=== PATIENT | female | born 1935 | race Caucasian/White ===

== ENCOUNTER 2017-01-03 08:00 | Inpatient (IN) | payer OTHER ==
[2016-12-24 12:16] VITALS: BMI 30.9
--- NOTE | 2016-12-31 10:35 | HP ---
Satellite [facility] - Chief Complaint Chief Complaint: right hip pain - Past Medical History Allergies/Adverse Reactions: Allergies Allergy/AdvReac Type Severity Reaction Status Date / Time No Known Allergies Allergy Verified 12/24/16 11:49 - Current Medications Current Medications: Home Medications Medication Instructions Recorded Amlodipine Besylate [Norvasc -] 10 mg PO DAILY 12/24/16 Atorvastatin Ca [Lipitor] 80 mg PO DAILY 12/24/16 Digoxin 125 mcg PO DAILY 12/24/16 Glimepiride [Amaryl] 0.5 mg PO DAILY 12/24/16 Metformin HCl [Metformin HCl ER] 1,000 mg PO BID 12/24/16 Prednisone [Deltasone -] 20 mg PO UTDICT 12/24/16 Valsartan/Hydrochlorothiazide 1 each PO HS 12/24/16 [Valsartan-Hctz 320-25 mg Tab] Warfarin Sodium [Coumadin] 9 mg PO ASDIR 12/24/16 Warfarin Sodium [Coumadin] 10 mg PO ASDIR 12/24/16 Satellite Physical Exam - Physical Examination General Appearance: Well Nourished, Well Developed, Alert & Oriented x3 ENT: Clear Lung: Normal air movement Heart: Regular rate & rhythm Extremities: Other (right hip- + ttp, decr rom, nvi xrays show severe hip djd) Neurological: Intact, Alert, Oriented Satellite Impression/Plan - Impression/Plan Impression: right hip djd Operative Procedure: right bijan thr Date to be Performed: 01/04/17
[2017-01-04] MEDS ORDERED: CEFAZOLIN 2 GM in DEXTROSE 5%-WATER - 50 ML IVPB ONE (06:03)
[2017-01-04] MEDS ORDERED: GABAPENTIN 300 MG CAPSULE (FP) PO ONE (06:03)
[2017-01-04] MEDS ORDERED: CELECOXIB 200 MG CAPSULE PO ONE (06:03)
[2017-01-04] MEDS ORDERED: TRANEXAMIC ACID 1000 MG/10 ML VIAL IVPUSH ONE (06:03)
[2017-01-04] MEDS ORDERED: ceFAZolin SODIUM 1 GM VIAL ONE ×2 (07:05→09:52)
[2017-01-04] MEDS ORDERED: VANCOMYCIN 1,000 MG VIAL (RESTRICTED TO ID ONLY) ONE (07:05)
[2017-01-04] MEDS ORDERED: MIDAZOLAM HCL 2 MG/2 ML SINGLE DOSE VIAL ONE ×2 (07:37→08:56)
[2017-01-04] MEDS ORDERED: DEXAMETHASONE SOD PHOSPHATE/PF 10 MG/ML SDV ONE (07:37)
[2017-01-04 07:48] LABS: INR 0.99 (0.82-1.09); PROTHROMBIN TIME (PATIENT) 10.9 SEC (9.98-11.88)
[2017-01-04] MEDS ORDERED: BUPIVACAINE HCL/PF 0.5% (5MG/ML) 10 ML VIAL ONE (08:06)
[2017-01-04] MEDS ORDERED: PROPOFOL 20 ML ONE ×3 (08:06)
[2017-01-04] MEDS ORDERED: PHENYLEPHRINE HCL 10 MG/1 ML SINGLE DOSE VIAL ONE (09:03)
[2017-01-04] MEDS ORDERED: VANCOMYCIN 1,000 MG VIAL (RESTRICTED TO ID ONLY) IVPB ONE (09:30)
[2017-01-04] MEDS ORDERED: LACTATED RINGERS SOLUTION 1,000 ML IV SCH (10:00)
[2017-01-04] MEDS ORDERED: MULTIVITAMINS (DAILY MVI) TABLET (FP) PO SCH (10:00)
[2017-01-04] MEDS ORDERED: MAGNESIUM HYDROX 2400MG/30ML ORAL SUSPENSION 30 ML CUP PO PRN (10:00)
[2017-01-04] MEDS ORDERED: ONDANSETRON 4 MG/2 ML VIAL IVPB PRN (10:00)
[2017-01-04] MEDS ORDERED: MAG HYDROX/AL HYDROX/SIMETH 30 ML UNIT-DOSE CUP PO PRN (10:00)
--- NOTE | 2017-01-04 10:05 | OP ---
Operative Note - Note: Operative Date: 01/04/17 (mik) Pre-Operative Diagnosis: right hip djd Operation: right bijan thr Post-Operative Diagnosis: Same as Pre-op Surgeon: Stan Tyler Auto Parts Clerk: Luis Tello Anesthesiologist/CLINICAL PHARMACOLOGIST: Jen Delacruz Anesthesia: Spinal, Local Specimens Removed: femoral head Estimated Blood Loss (mls): 100 Operative Report Dictated: Yes
[2017-01-04] MEDS ORDERED: PROMETHAZINE HCL 25 MG/1 ML VIAL IVPUSH PRN (10:07)
[2017-01-04] MEDS ORDERED: oxyCODONE HCL 5 MG TABLET PO PRN (10:09)
[2017-01-04] MEDS ORDERED: ACETAMINOPHEN 1000 MG/100 ML VIAL (NON FORMULARY) IVPB ONE (10:09)
[2017-01-04] MEDS ORDERED: ONDANSETRON 4 MG/2 ML VIAL IVPUSH ONE (10:24)
[2017-01-04] MEDS ORDERED: METOCLOPRAMIDE HCL INJECTION 10 MG/2 ML VIAL IVPUSH ONE (10:58)
[2017-01-04] MEDS ORDERED: METOCLOPRAMIDE HCL INJECTION 10 MG/2 ML VIAL ONE (11:00)
[2017-01-04] MEDS ORDERED: DEXAMETHASONE SOD PHOSPHATE 4 MG/1 ML VIAL ONE (11:00)
--- NOTE | 2017-01-04 11:46 | SPEC ---
DATE OF OPERATION: 01/04/2017 PROCEDURE: Right total hip replacement with robotic-assisted navigation (MAKOplasty) PREOPERATIVE DIAGNOSIS: Degenerative joint disease right hip POSTOPERATIVE DIAGNOSIS: Degenerative joint disease right hip SURGICAL ATTENDING: Stan Tyler MD NOXIOUS WEEDS AND PEST INSPECTOR: EMILIANO Marley ANESTHESIA: Spinal and regional CLOSURE: No. 5, Accolade-2 Press Fit stem with a standard MDM head with a 50 titanium Press Fit acetabulum, No. 1 Vicryl for fascia and capsule, 0 and 2 of subcutaneous 0-0 Monocryl subcuticular with skin glue for skin. ESTIMATED BLOOD LOSS: Less than 100 mL COMPLICATION: None: CONDITION: To recovery room in stable condition DESCRIPTION OF OPERATIVE PROCEDURE: The patient was taken to the operating room. Spinal anesthesia as well as sciatic block was administered by the anesthesiologist. The IV Kefzol and TXA were administered prophylactically prior to the case. The patient was placed in the lateral decubitus position with all prominences well-padded. An EKG pad was secured to the inferior pole of the patella for limb length calculations intraoperatively. The right hip area was prepped and draped in the usual sterile fashion. A 12.0-15.0 cm curved longitudinal incision over the posterolateral aspect of the greater trochanter was made. Hemostasis was achieved with Bovie cautery. Sharp dissection was carried down to the level of the fascia. The fascia was opened the entire length of the incision, spreading the gluteus norberto fibers in the direction of their origin. A Charnley retractor was placed in this layer, and care was taken to be far away from the sciatic nerve. The short external rotators were detached off the insertion of the greater trochanter and peeled off the capsule. A posterior capsulectomy was then performed. A checkpoint was malleted into the greater trochanter. Three small stab incisions were done on the iliac crest. Through these stab incisions, threaded guide pins were drilled into the iliac crest. These pins were fastened to the Navigation array. The check point on the greater trochanter, and the EKG pad on the inferior pole of the patella were used to measure preoperative limb length and offset. The hip was then dislocated. The hip was osteotomized at the appropriate level as directed by the preoperative template. Anterior and posterior retractors were placed around the acetabulum. Circumferential labrum was excised. A checkpoint was malleted into the acetabulum superiorly. The acetabulum was then registered with the Navigation device with multiple sites within the acetabulum and around the rim of the acetabulum. I t was then confirmed popping the blue bubbles, confirming ideal position and confirmation of adequate registration with the Navigation device. Using a 48 reamer, which was decided preoperatively on the preoperative template, the robotic arm was brought into the field and was used to ream the acetabulum down to the appropriate depth with the appropriate orientation and inversion applied. After reaming, a good hemispherical bleeding surface was encountered in the acetabulum. A SIDNEY shell of the appropriate size was then malleted into place achieving excellent fit. Confirmation of the appropriate orientation and inversion was confirmed using the probe, and assuring that the acetabular cup was placed in the ideal position as templated preoperatively. A real liner was then clipped into place with a 10 degree lip in the posterior-superior quadrant. Anterior and posterior osteophytes were removed using osteotome. Next, our attention was directed to the femur. The proximal femur was opened with a box chisel, rat-tail, anchovy and serial reamers. This was done until the appropriate reamer achieved good fit and fill of the proximal femur. A trial reduction with the appropriate neck and head, as again measured from our preoperative template, was performed. Limb lengths were confirmed both visually and using the Navigation device, again measuring the inferior pole of the patella and the checkpoint of the greater trochanter. This confirmed ideal position of the femoral component, lengths and offset. The trial components were removed. The real component was malleted into place. The head was cold-welded to the Charnley and the hip was reduced. Again, the hip was found to have equal limb lengths as described previously. The hip was also taken through a range of motion and found to be stable in external rotation and extension, was stable in marked flexion, stable in adduction and internal rotation, and had a positive hang test and negative telescoping. The hip was irrigated with copious amounts of irrigation. Hemostasis was achieved. Vancomycin powder was sprinkled into the joint. A second dose of TXA was administered. The fascia was closed with No. 1 Vicryl interrupted suture, 0 and 2-0 for subcutaneous, and 3-0 Monocryl subcuticular for skin with skin glue. This was followed by an Aquacel dressing. The patient was flipped into the supine position. Bilateral SCDs and an abduction pillow were applied. X-rays showed good position of the components. The patient was awakened from anesthesia and transferred to the recovery room in stable condition. COMPLICATIONS: None. ESTIMATED BLOOD LOSS: Less than 100 mL. Tyrone ACUNA/[id number]
[2017-01-04] MEDS: CEFAZOLIN 2 GM/D5W 50 ML IVPB SCH ×2 (15:06→23:19)
[2017-01-04] MEDS: oxyCODONE HCL 5 MG TABLET PO PRN (15:07)
[2017-01-04] MEDS: INSULIN SLIDING SCALE (NOVOLOG) 1 VIAL SQ SCH ×2 (16:29→22:16)
[2017-01-04] MEDS: ACETAMINOPHEN 325 MG TABLET (FP) PO SCH ×2 (18:07→23:19)
[2017-01-04] MEDS ORDERED: PT OWN MED DRAWER 7, Y5N ONE (21:20)
[2017-01-04] MEDS: GABAPENTIN 300 MG CAPSULE (FP) PO SCH (21:47)
[2017-01-04] MEDS: oxyCODONE HCL 10 MG SUSTAINED ACTING TABLET PO SCH (21:48)
[2017-01-04] MEDS: HYDROCHLOROTHIAZIDE 25 MG TABLET (FP) PO SCH (21:48)
[2017-01-04] MEDS: VALSARTAN 160 MG TABLET (UD) PO SCH (21:48)
[2017-01-04] MEDS: BUDESONIDE/FORMETEROL FUMARATE 160/4.5 mcg INHALER IH SCH (21:49)
[2017-01-04] MEDS: SENNOSIDES/DOCUSATE COMBO (SENNA PLUS) TABLET (UD) PO SCH (21:51)
[2017-01-04] MEDS ORDERED: PATIENT'S OWN MEDICATION (NON-FORMULARY) (Valsartan/Hydrochlorothiazide [Valsartan-Hctz 32 PO SCH (22:00)
[2017-01-04] MEDS ORDERED: PATIENT'S OWN MEDICATION (NON-FORMULARY) (Metformin Hcl [Metformin Hcl Er] 1,000 MG) PO SCH (22:00)
[2017-01-05] MEDS: INSULIN SLIDING SCALE (NOVOLOG) 1 VIAL SQ SCH ×2 (06:25→11:30)
[2017-01-05] MEDS: ACETAMINOPHEN 325 MG TABLET (FP) PO SCH ×3 (06:26→18:51)
[2017-01-05] MEDS: GLIMEPIRIDE 1 MG TABLET (FP) PO SCH (06:30)
--- NOTE | 2017-01-05 07:51 | PN ---
Progress Note (short form) - Note Progress Note: Ortho Pt seen and examined s/p right bijan thr pod #1 Selected Entries 01/05/17 05:25 Temperature 98.6 F Pulse Rate 88 Respiratory 18 Rate Blood Pressure 135/44 dressing c/d/i, calf soft, nt nvi cbc-pending a/p PT hip precautions dvt ppx pain control d/c home tomorrow if stable
[2017-01-05] MEDS: WARFARIN NA 10 MG TABLET (FP) PO SCH (08:00)
[2017-01-05 08:34] LABS: MCHC 32.4 g/dl (32.0-36.0); MEAN CELL VOLUME 89.6 fl (80-96); MEAN PLT VOLUME 8.7 fl (7.5-11.1); PLATELET COUNT 242 K/MM3 (134-434); RDW 14.6 % (11.6-15.6); WHITE BLOOD COUNT 12.1 K/mm3 (4.0-10.0)
[2017-01-05 09:04] LABS: CALCIUM 9.4 mg/dl (8.4-10.2); CREATININE 1.1 mg/dl (0.6-1.3)
[2017-01-05] MEDS: GABAPENTIN 300 MG CAPSULE (FP) PO SCH ×2 (09:56→21:42)
[2017-01-05] MEDS: ATORVASTATIN CA 80 MG TABLET (FP) PO SCH (09:57)
[2017-01-05] MEDS: SENNOSIDES/DOCUSATE COMBO (SENNA PLUS) TABLET (UD) PO SCH ×3 (09:57→21:42)
[2017-01-05] MEDS: DIGOXIN 0.125 MG TABLET (FP) PO SCH (09:57)
[2017-01-05] MEDS: amLODIPine BESYLATE 10 MG TABLET (FP) PO SCH (09:57)
[2017-01-05] MEDS: PANTOPRAZOLE 40 MG TABLET (FP) PO SCH ×2 (09:58→10:05)
[2017-01-05] MEDS ORDERED: FLUTICASONE PROP 0.05% 16 GM NASAL SPRAY NS SCH (10:00)
[2017-01-05] MEDS: oxyCODONE HCL 10 MG SUSTAINED ACTING TABLET PO SCH ×2 (10:06→21:42)
[2017-01-05] MEDS: BUDESONIDE/FORMETEROL FUMARATE 160/4.5 mcg INHALER IH SCH ×2 (10:06→21:43)
[2017-01-05] MEDS: oxyCODONE HCL 5 MG TABLET PO PRN (14:27)
[2017-01-05] MEDS ORDERED: PT OWN MED DRAWER 7, Y5N ONE (21:06)
[2017-01-05] MEDS: VALSARTAN 160 MG TABLET (UD) PO SCH (21:41)
[2017-01-05] MEDS: HYDROCHLOROTHIAZIDE 25 MG TABLET (FP) PO SCH (22:49)
[2017-01-06] MEDS ORDERED: PT OWN MED DRAWER 7, Y5N ONE (06:12)
[2017-01-06 06:43] VITALS: BP 109/74; PULSE 75; TEMP 98.3
[2017-01-06] MEDS: GLIMEPIRIDE 1 MG TABLET (FP) PO SCH (06:49)
[2017-01-06] MEDS: ACETAMINOPHEN 325 MG TABLET (FP) PO SCH ×2 (06:50)
[2017-01-06] MEDS: WARFARIN NA 10 MG TABLET (FP) PO SCH (08:12)
[2017-01-06 08:16] LABS: MCH 29.5 pg (25.7-33.7); MEAN CELL VOLUME 89.3 fl (80-96); MEAN PLT VOLUME 8.5 fl (7.5-11.1); PLATELET COUNT 218 K/MM3 (134-434); RDW 14.6 % (11.6-15.6)
--- NOTE | 2017-01-06 08:43 | PN ---
Progress Note (short form) - Note Progress Note: Ortho Pt seen and examined s/p right bijan thr pod #2 Selected Entries 01/06/17 06:00 Temperature 98.3 F Pulse Rate 75 Respiratory 18 Rate Blood Pressure 109/74 Laboratory Tests 01/06/17 07:00 WBC 10.0 Hgb 11.1 Hct 33.7 Plt Count 218 dressing c/d/i, calf soft, nt nvi a/p PT hip precautions dvt ppx pain control d/c to rehab today f/u in office in 10-14 days
--- NOTE | 2017-01-06 08:44 | DS ---
Physical Examination Vital Signs: Vital Signs Temperature 98.3 F 01/06/17 06:00 Pulse Rate 75 01/06/17 06:00 Respiratory Rate 18 01/06/17 07:46 Blood Pressure 109/74 01/06/17 06:00 O2 Sat by Pulse Oximetry (%) 88 L 01/06/17 07:46 Labs: CBC, BMP 01/06/17 07:00 01/05/17 07:00 Discharge Summary Reason For Visit: OSTEOARTHRITIS Procedures: Principal: s/p right bijan thr Hospital Course: admitted for elective right bijan thr, uneventful post-op, stable for d/c Condition: Good - Instructions Diet, Activity, Other Instructions: Post-op Instructions-Total Hip Replacement Call the office for a follow-up appointment in 1 week - [phone] Aspirin 325mg daily for 6 weeks. Pain medication was sent into your pharmacy. Apply Graduated Compression Stockings (TEDs) to both lower extremities- remove daily for hygiene ONLY Apply Sequential Compression Device (SCDs) to both Lower extremities remove for PT and hygiene ONLY Apply cold packs to affected area for 15 minutes every 2 hours. Physical Therapist will come to your home for the first 5 days. You will be set up with outpatient PT at your first post-operative visit. Patient may ambulate as tolerated-encourage self care (at least every 2-3 hours while awake) with walker or cane Maintain Aquacel (waterproof) dressing to operative wound (will be removed by surgeon at first office visit) Shower with Aquacel dressing in place-if Aquacel integrity compromised, remove and apply dry sterile dressing and notify Orthopedist. DO NOT SHOWER unless Orthopedists approves without Aquacel dressing CONTACT THE OFFICE FOR ANY CHANGE IN YOUR CONDITION (for example-fever greater than 102 degrees,excessive bleeding from operative site, purulent drainage, severe swelling or pain) GO TO THE EMERGENCY ROOM IF THERE IS A MEDICAL EMERGENCY Hip Precautions: * Keep a rolled towel under affected heel while in bed or chair (to keep knee in extension) * Dependent upon approach: * Posterior - do not cross legs; do not sit on low chairs or toilets. * If you have any questions, please do not hesitate to call the office - [phone]. Referrals: Stan Tyler MD [Staff Physician] - Disposition: VNS/HOME HEALTH CARE - Home Medications Comprehensive Discharge Medication List: Ambulatory Orders Amlodipine Besylate [Norvasc -] 10 mg PO DAILY 12/24/16 Atorvastatin Ca [Lipitor] 80 mg PO DAILY 12/24/16 Digoxin 125 mcg PO DAILY 12/24/16 Glimepiride [Amaryl] 0.5 mg PO DAILY 12/24/16 Metformin HCl [Metformin HCl ER] 1,000 mg PO BID 12/24/16 Prednisone [Deltasone -] 20 mg PO UTDICT 12/24/16 Valsartan/Hydrochlorothiazide [Valsartan-Hctz 320-25 mg Tab] 1 each PO HS Warfarin Sodium [Coumadin] 9 mg PO ASDIR 12/24/16 Warfarin Sodium [Coumadin] 10 mg PO ASDIR 12/24/16 Budesonide/Formeterol Fumarate [SYMBICORT 160/4.5mcg -] 2 inh PO BID 01/04/17 Fluticasone Prop 0.05% Nasal [Flonase -] 1 spray NS DAILY 01/04/17 Oxycodone HCl/Acetaminophen [Percocet 5-325 mg Tablet -] 1 - 2 tab PO Q6H #50 tab MDD 8 01/04/17
[2017-01-06] MEDS: ATORVASTATIN CA 80 MG TABLET (FP) PO SCH (10:13)
[2017-01-06] MEDS: DIGOXIN 0.125 MG TABLET (FP) PO SCH (10:13)
[2017-01-06] MEDS: amLODIPine BESYLATE 10 MG TABLET (FP) PO SCH (10:13)
[2017-01-06] MEDS: PANTOPRAZOLE 40 MG TABLET (FP) PO SCH (10:13)
[2017-01-06] MEDS: SENNOSIDES/DOCUSATE COMBO (SENNA PLUS) TABLET (UD) PO SCH (10:13)
[2017-01-06] MEDS: GABAPENTIN 300 MG CAPSULE (FP) PO SCH (10:13)
[2017-01-06] MEDS: oxyCODONE HCL 5 MG TABLET PO PRN (10:14)
--- NOTE | 2017-01-06 16:19 | PATH ---
Surgical Pathology Report Patient Name: DEREK REED Med. Rec. #: [id number] /Age/Gender: 1935 (Age: 81) / F Account: [id number] Location: [facility] Taken: 01/04/2017 Received: 01/04/2017 Reported: 01/06/2017 Physicians: Stan Tyler M.D. Specimen(s) Received RIGHT FEMORAL HEAD Clinical History Osteoarthritis Final Diagnosis FEMORAL HEAD, RIGHT, TOTAL HIP REPLACEMENT (MAKOPLASTY): DEGENERATIVE JOINT DISEASE. Electronically Signed Reinaldo Wiggins M.D. Gross Description Received in formalin, labeled "right femoral head" is a 4.5 x 4.5 x 4.0 cm femoral head with 0.6 cm in length portion of femoral neck attached. The margin of resection is smooth. No areas of eburnation are identified. The articular surface is artis-yellow and granular. The underlying trabecular bone is artis-yellow and heterogeneous. A welding equipment sales representative section is submitted in one cassette, following decalcification. 01/05/201701/05/2017
== END 2017-01-06 12:08 | DRG 470 ==
LOC: FM/S 01-04 05:50
PROVIDERS: ADMIT Orthopaedic Surgery; ATTEND Orthopaedic Surgery
PROC: 8E0Y0CZ Robotic Assisted Procedure of Lower Extremity, Open Approach (ICD-10-PCS; 2017-01-04)
PROC: 0SR90JZ Replacement of Right Hip Joint with Synthetic Substitute, Open Approach (ICD-10-PCS; principal; 2017-01-04 08:32)
DX: M16.11 Unilateral primary osteoarthritis, right hip (principal)
CPT/HCPCS: 36415; 73523-TC; 80048; 85027; 85610; 88304-TC; 88311-TC; 94010; 94760; 97116-GP; 97162-PG

== ENCOUNTER 2017-10-20 17:39 | Emergency (ER) | payer OTHER ==
--- NOTE | 2017-10-20 17:54 | PDOC ---
Rapid Medical Evaluation Chief Complaint: G Tube Problem Time Seen by Provider: 10/20/17 17:51 Medical Evaluation: Allergies Allergy/AdvReac Type Severity Reaction Status Date / Time No Known Allergies Allergy Verified 10/20/17 17:51 10/20/17 17:52 The patient presents with a chief complaint of: peg tube not flowing well. I have performed a brief in-person evaluation of this patient. Pertinent physical exam findings: vss, #14 y[address] catheter in place ( since tuesday) I have ordered the following:none The patient will proceed to the ED for further evaluation. Discharge Disposition - Diagnosis PEG tube malfunction - Referrals - Patient Instructions - Post Discharge Activity
[2017-10-20 19:08] VITALS: BP 141/69; PULSE 70; TEMP 98.2; BMI 27.4
--- NOTE | 2017-10-20 20:35 | PDOC ---
History of Present Illness - General Chief Complaint: G Tube Problem Stated Complaint: EVALUATION Time Seen by Provider: 10/20/17 17:51 History Source: Patient, Family Exam Limitations: No Limitations - History of Present Illness Initial Comments: This is an 82 YOF with h/o squamous cell cancer of the throat now about 3 weeks s/p resection with subsequent inability to swallow and G-tube placement, who presents c/o clogged G-tube all day today. She has been at [facility] where her medications are being crushed, mixed with water, and pushed into her G-tube but this morning the tube became clogged. She believes that she did get all of her medications today. She notes that prior to this G-tube complication, two other G -tubes had become dislodged over the past three weeks. She notes that the current one is a 14 Fr and feels much to small, causing feeding to take much too long. She otherwise has been feeling well lately despite all the medical complications and a recent move to [facility]. She denies fever, chills, nausea , vomiting, diarrhea, constipation, cough, shortness of breath, chest pain, abdominal pain, dysuria, or other symptoms. Past History - Past Medical History Allergies/Adverse Reactions: Allergies Allergy/AdvReac Type Severity Reaction Status Date / Time No Known Allergies Allergy Verified 10/20/17 17:51 Home Medications: Ambulatory Orders Amlodipine Besylate [Norvasc -] 10 mg PO DAILY 12/24/16 Atorvastatin Ca [Lipitor] 80 mg PO DAILY 12/24/16 Digoxin 125 mcg PO DAILY 12/24/16 Glimepiride [Amaryl] 0.5 mg PO DAILY 12/24/16 Metformin HCl [Metformin HCl ER] 1,000 mg PO BID 12/24/16 Prednisone [Deltasone -] 20 mg PO UTDICT 12/24/16 Valsartan/Hydrochlorothiazide [Valsartan-Hctz 320-25 mg Tab] 1 each PO HS Warfarin Sodium [Coumadin] 9 mg PO ASDIR 12/24/16 Warfarin Sodium [Coumadin] 10 mg PO ASDIR 12/24/16 Budesonide/Formeterol Fumarate [SYMBICORT 160/4.5mcg -] 2 inh PO BID 01/04/17 Fluticasone Prop 0.05% Nasal [Flonase -] 1 spray NS DAILY 01/04/17 Oxycodone HCl/Acetaminophen [Percocet 5-325 mg Tablet -] 1 - 2 tab PO Q6H #50 tab MDD 8 01/04/17 Anemia: No Asthma: No Cancer: No Cardiac Disorders: Yes (ATRIAL FIBRILLATION-ON COUMADIN) CVA: No COPD: No CHF: No Dementia: No Diabetes: Yes (INVOLVED IN STUDY @ [facility]-"GRADE" STUDY) GI Disorders: No Disorders: No HTN: Yes Hypercholesterolemia: Yes Liver Disease: No Seizures: No Thyroid Disease: No - Surgical History Abdominal Surgery: No Appendectomy: No Cardiac Surgery: No Cholecystectomy: No Lung Surgery: No Neurologic Surgery: No Orthopedic Surgery: No - Immunization History Immunization Up to Date: Yes - Suicide/Smoking/Psychosocial Hx Smoking History: Never smoked Have you smoked in the past 12 months: No Information on smoking cessation initiated: No Hx Alcohol Use: No Drug/Substance Use Hx: No Substance Use Type: None Hx Substance Use Treatment: No Review of Systems - Review of Systems Able to Perform ROS?: Yes Constitutional: No: Chills, Fever, Unexplained wgt Loss HEENTM: No: Nose Congestion, Throat Pain Respiratory: No: Cough, Shortness of Breath Cardiac (ROS): No: Chest Pain, Palpitations ABD/GI: No: Constipated, Diarrhea, Nausea, Vomiting : No: Burning, Dysuria Musculoskeletal: No: Back Pain, Neck Pain Integumentary: No: Bruising, Rash Neurological: No: Headache, Numbness, Tingling, Weakness, Dizziness Endocrine: No: Unexplained Weight Gain, Unexplained Weight Loss *Physical Exam - Vital Signs Last Vital Signs Temp Pulse Resp BP Pulse Ox 98.2 F 70 16 141/69 96 10/20/17 17:51 10/20/17 17:51 10/20/17 17:51 10/20/17 17:51 10/20/17 17:51 - Physical Exam General Appearance: Yes: Nourished, Appropriately Dressed, Other (pleasant elderly female accompanied by her son who helps with her medical history, patient mildly tearful and appears slightly distressed speaking about her recent complicated medical history) HEENT: positive: EOMI, Normal Voice, Hearing Grossly Normal, Other (3 cm well- healing surgical incision noted just inferior to midsaggital mandible). negative: Scleral Icterus (R), Scleral Icterus (L), Nasal Congestion Neck: positive: Trachea midline, Supple. negative: Tender, Rigid Respiratory/Chest: positive: Lungs Clear, Normal Breath Sounds. negative: Respiratory Distress, Crackles, Rhonchi, Stridor, Wheezing Cardiovascular: positive: Regular Rhythm, Regular Rate. negative: Murmur Gastrointestinal/Abdominal: positive: Normal Bowel Sounds, Flat, Soft, Other (g- tube in place epigastrium with minimal fluid drainage around the skin opening, G -tube will not flush). negative: Tender, Organomegaly, Pulsatile Mass, Guarding Musculoskeletal: positive: Normal Inspection. negative: Decreased Range of Motion, Vertebral Tenderness Extremity: positive: Normal Capillary Refill, Normal Inspection, Normal Range of Motion. negative: Tender, Cyanosis Integumentary: positive: Normal Color, Dry, Warm. negative: Erythema, Rash, Bruising Neurologic: positive: house worker general II-XII NML intact (grossly), Fully Oriented, Alert, Normal Mood/Affect, Normal Response, Motor Strength 5/5 Medical Decision Making - Medical Decision Making 82 YOF with G-tube placed about 3 weeks ago, replaced after falling out twice, now clogged. She would like a 16 Fr tube as this 14 Fr is too small and feeding takes too long. On exam vitals are wnl, patient is mildly tearful, accompanied by son. G-tube in place epigastrium and does not flush but otherwise appears wnl. This is removed and immediately replaced with 16 Fr G-tube without issue. Ordered is a post-replacement x-ray with contrast. The patient and her son are informed that an x-ray is necessary to confirm placement. The patient elopes before the study can be performed. *DC/Admit/Observation/Transfer Diagnosis at time of Disposition: PEG tube malfunction - Discharge Dispostion Disposition: ELOPED - Referrals Referrals: Jeremiah Morgan [Primary Care Provider] - - Patient Instructions - Post Discharge Activity
--- NOTE | 2017-10-20 22:00 | PDOC ---
Attending Attestation - HPI HPI: 10/20/17 22:00 The patient is an 82 year old female with significant history of throat CA s/p resection s/p g-tube placement who comes to the ED with g-tube malfunction. She and her son at bedside report that the g-tube has been clogged for the past several days. She recently had her g-tube replaced from a size 16 to 14 and subequently developed difficulty with using her g-tube. No fever, chills, or rash. No nausea, vomiting, or diarrhea. - Physicial Exam PE: 10/20/17 22:04 Constitutional: Awake, alert, oriented. No acute distress. Head: Normocephalic. Atraumatic Eyes: PERRL. EOMI. Conjunctivae are not pale. Cardiovascular: Regular rate. Regular rhythm. S1, S2 regular. Distal pulses are 2+ and symmetric. Pulmonary/Chest: No evidence of respiratory distress. Clear to auscultation bilaterally No wheezing, rales or rhonchi. Abdominal: +G-tube is in place with mild excoriation at g-tube site, no warmth or drainage. Soft and non-distended. No rebound, guarding or rigidity. No organomegaly. No palpable masses. Good bowel sounds. Back: No CVA tenderness. Musculoskeletal: No edema. No cyanosis. No clubbing. Full range of motion in all extremities. No calf tenderness. Radial/pedal pulses are intact and 2+ bilaterally Skin: Skin is warm and dry. No petechiae. No purpura. G-tube site as noted in ABDOMEN. Neurological: Alert and oriented to person, place, and time. Cranial nerves II -XII are grossly intact. Strength is grossly symmetric. No sensory deficits. Psychiatric: Good eye contact. Normal interaction, affect and behavior. - Medical Decision Making 10/20/17 22:14 Documentation prepared by Chey Mesa, acting as medical device engineer for Génesis Griffin DO. <Chey Mesa - Last Filed: 10/20/17 22:02> - Resident Resident Name: Ally Ahumada - ED Attending Attestation I have performed the following: I have examined & evaluated the patient, The case was reviewed & discussed with the resident, I agree w/resident's findings & plan, Exceptions are as noted - Medical Decision Making 10/20/17 21:59 I, Dr. Génesis Griffin, DO, attest that this document has been prepared under my direction and personally reviewed by me in its entirety. I further attest, that it accurately reflects all work, treatment, procedures and medical decision -making performed by me. 10/20/17 21:59 a/p: 82yo female with g tube dysfunction -replaced to a 16f from a 14 f -will obtain fistulogram to eval site of g tube -pt tolerated procedure well nontoxic in appearance 10/20/17 22:41 pt not present to go for xray had discussed with the patient the need for an xray to ensure proper placment of the g-tube. pt no longer in the ED eloped from the ED <Génesis Griffin - Last Filed: 10/20/17 22:42> Discharge Disposition - Discharge Dispostion Last Admission D/C Date: 01/06/17 <Génesis Griffin - Last Filed: 10/20/17 22:42> - Diagnosis PEG tube malfunction - Discharge Dispostion Disposition: ELOPED - Referrals Referrals: Jeremiah Morgan [Primary Care Provider] - - Patient Instructions - Post Discharge Activity
== END 2017-10-20 21:40 | disposition left against medical advice (07) ==
LOC: JER 17:39
PROC: 0D20XUZ Change Feeding Device in Upper Intestinal Tract, External Approach (ICD-10-PCS; principal; 2017-10-20)
DX: K94.23 Gastrostomy malfunction (principal); Y83.8 Other surgical procedures as the cause of abnormal reaction of the patient, or of later complication, without mention of misadventure at the time of the procedure; I48.91 Unspecified atrial fibrillation; Z79.01 Long term (current) use of anticoagulants; I10 Essential (primary) hypertension; E11.9 Type 2 diabetes mellitus without complications; E78.00 Pure hypercholesterolemia, unspecified
CPT/HCPCS: 99282-25